=== PATIENT | male | born 1960 | race Caucasian/White ===

== ENCOUNTER 2018-07-07 13:06 | Emergency (ER) | payer OTHER ==
[2018-07-07 13:20] VITALS: BP 135/92; PULSE 97; RESP 16; TEMP 98.3
--- NOTE | 2018-07-07 13:45 | ED ---
General Adult HPI - General Chief complaint: Recheck/Abnormal Lab/Rx Stated complaint: hemoptysis Time Seen by Provider: 07/07/18 13:52 Source: patient Mode of arrival: ambulatory Limitations: no limitations - Related Data Home Medications Medication Instructions Recorded Confirmed Aspirin EC [Ecotrin Low Dose] 81 mg PO TUTHSA 07/07/18 07/07/18 Cholesterol (Unknown) 1 tab PO TUTHSA 07/07/18 07/07/18 Fenofibrate Nanocrystallized 145 mg PO DAILY 07/07/18 07/07/18 [Tricor] Multivitamin,Therapeutic [Thera] 1 tab PO DAILY 07/07/18 07/07/18 [place]-3 Fatty Acids/Fish Oil [Fish 1 cap PO DAILY 07/07/18 07/07/18 Oil 1,000 mg Softgel] Allergies Allergy/AdvReac Type Severity Reaction Status Date / Time No Known Allergies Allergy Verified 07/07/18 13:47 Review of Systems ROS Statement: Those systems with pertinent positive or pertinent negative responses have been documented in the HPI. ROS Other: All systems not noted in ROS Statement are negative. Past Medical History Past Medical History: Hyperlipidemia Additional Past Medical History / Comment(s): mitral valve prolapse. History of Any Multi-Drug Resistant Organisms: None Reported Additional Past Surgical History / Comment(s): eye surgery Past Psychological History: No Psychological Hx Reported Smoking Status: Never smoker Past Alcohol Use History: Occasional Past Drug Use History: None Reported General Exam Limitations: no limitations Course Vital Signs 07/07/18 13:15 Temperature 98.3 F Pulse Rate 97 Respiratory 16 Rate Blood Pressure 135/92 O2 Sat by Pulse 98 Oximetry Medical Decision Making - Medical Decision Making Dictation was produced using [employer] dictation software. please excuse any grammatical, word or spelling errors. Chief Complaint: 58-year-old male with past medical history of mitral valve prolapse presents with acute episode of oral bleeding. 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 States that he felt some warmth throughout his whole body and in the back of his throat. He excused himself from the meeting went to the bathroom and coughed up approximately 10-20 mL of bright red blood. States that after spitting this out his symptoms went away. Patient states he's had URI type symptoms recently including sore throat, head cold and runny nose. Patient denies coughing or vomiting. Since that episode patient hasn't had any recurrent symptoms. Patient denies any fever, chills or night sweats. He denies that this blood was covering mucus. The ROS documented in this emergency department record has been reviewed and confirmed by me. Those systems with pertinent positive or negative responses have been documented in the HPI. All other systems are other negative and/or noncontributory. PHYSICAL EXAM: General Impression: Alert and oriented x3, not in acute distress HEENT: Normocephalic atraumatic, extra-ocular movements intact, pupils equal and reactive to light bilaterally, mucous membranes moist. Cardiovascular: Heart regular rate and rhythm, S1&S2 audible, no murmurs, rubs or gallops Chest: Lungs clear to auscultation bilaterally, no rhonchi, no wheeze, no rales Abdomen: Bowel sounds present, abdomen soft, non-tender, non-distended, no organomegaly Musculoskeletal: Pulses present and equal in all extremities, no peripheral edema Motor: Power 5/5 bilaterally, no focal deficits noted Neurological: CN II-XII grossly intact, no focal motor or sensory deficits noted Skin: Intact with no visualized rashes Psych: Anxious ED course: 58 year old male presents after episode of spitting up blood. Patient is well-appearing. vital signs are stable. At this point there is no clear source of bleeding. No labs are indicated at this time. Patient denies any chest pain. Patient denies any coughing. At this point hemoptysis is highly unlikely. There is no source of bleeding that could be seen from the external naris. Posterior pharynx does not show any signs of bleeding. There is no residual blood that can be seen anywhere. Physical examination is benign. At this point there is no indication for further workup. The monitor blood that was described was trivial. Patient advised to follow-up his primary care physician for further management of the symptoms. Patient told to seek emergency medical care should he have recurrent symptoms or persistent symptoms. In understandable and agreeable to plan. Reassurance provided. Disposition Clinical Impression: Bleeding Disposition: HOME SELF-CARE Condition: Good Instructions (If sedation given, give patient instructions): Sinusitis (ED) Additional Instructions: follow up with PCP for outpatient management of hematemesis vs. hemoptysis vs. sinusitis Go to ER if persistent bleeding, or feelings of lightheadedness or pain Is patient prescribed a controlled substance at d/c from ED?: No Referrals: Nonstaff,Physician [Primary Care Provider] - 1-2 days Time of Disposition: 13:44
== END 2018-07-07 14:00 | disposition home or self-care (01) ==
LOC: EC 13:06
DX: R04.2 Hemoptysis (principal); E78.5 Hyperlipidemia, unspecified; Z79.82 Long term (current) use of aspirin; Z79.899 Other long term (current) drug therapy
CPT/HCPCS: 99283